=== PATIENT | female | born 1990 | race Two or more races ===

== ENCOUNTER 2023-07-07 23:32 | Inpatient (IN) | payer OTHER ==
[~2023-07-07] VITALS: Ht 167.6 cm; Wt 164.7 kg
[2023-07-08] MEDS ORDERED: LIALDA1.2 GM (00:47)
[2023-07-08 01:57] LABS: PH,URINE 5.5 (5.0-8.0); URINE APPEARANCE Cloudy; URINE BILIRRUBIN Negative (NEGATIVE); URINE BLOOD Negative; URINE COLOR Dark Yellow; URINE GLUCOSE Negative (NEGATIVE); URINE LEUKOCYTE Trace; URINE NITRATE Negative; URINE PROTEIN 30 (NEGATIVE)
[2023-07-08 02:01] LABS: URINE BACTERIA 3702.8 uL (0.0-1933); URINE RBC 20.2 uL (0.0-20.8); URINE WBC 43.4 uL (0.0-23.2)
[2023-07-08 02:07] LABS: HEMATOCRIT 43.9 % (36.0-45.00); HEMOGLOBIN 14.7 g/dL (12.0-15.00); MEAN CELL VOLUME 83.8 fL (80.00-100.00); MEAN CORPUSCULAR HGB CONC 33.4 g/dl (32.0-36.0); PLATELET COUNT 468 K/uL (150-450); RED BLOOD COUNT 5.25 M/uL (4.00-6.00); RED CELL DISTRIBUTION WIDTH 13.7 % (11.5-14.5)
[2023-07-08 02:12] LABS: ALBUMIN 3.8 gm/dL (3.4-5.0); BILIRUBIN TOTAL 0.39 mg/dL (0.3-1.2); CALCIUM 9.7 mg/dL (8.5-10.1); CREATININE SERUM 0.75 mg/dL (0.55-1.02); GFR 88.99; GLOBULINA 5.2 G/DL (2.4-3.5); POTASSIUM 4.3 mEq/L (3.5-5.1)
[2023-07-08 08:45] LABS: HEMATOCRIT 40.4 % (36.0-45.00); HEMOGLOBIN 13.6 g/dL (12.0-15.00); MEAN CELL VOLUME 83.8 fL (80.00-100.00); MEAN CORPUSCULAR HEMOGLOBIN 28.2 pg (27.00-32.0); MEAN CORPUSCULAR HGB CONC 33.6 g/dl (32.0-36.0); PLATELET COUNT 430 K/uL (150-450); RED BLOOD COUNT 4.82 M/uL (4.00-6.00); RED CELL DISTRIBUTION WIDTH 13.8 % (11.5-14.5)
[2023-07-08 19:20] LABS: INR 1.09; PARTIAL THROMBOPLASTIN TIME 31.3 SECONDS (22.0-34.0); PROTHROMBIN TIME 11.4 SECONDS (9.0-11.5)
[2023-07-09 15:08] LABS: PH,URINE 6.5 (5.0-8.0); URINE APPEARANCE Cloudy; URINE BILIRRUBIN Negative (NEGATIVE); URINE BLOOD Negative; URINE COLOR Dark Yellow; URINE GLUCOSE Negative (NEGATIVE); URINE LEUKOCYTE Small; URINE NITRATE Negative; URINE PROTEIN 30 (NEGATIVE)
[2023-07-09 15:12] LABS: URINE BACTERIA 5315.7 uL (0.0-1933); URINE EPITHELIAL CELLS 88.7 uL (0.0-38.8); URINE RBC 75.1 uL (0.0-20.8); URINE WBC 99.4 uL (0.0-23.2)
[2023-07-10 06:03] LABS: HEMATOCRIT 36.8 % (36.0-45.00); HEMOGLOBIN 12.3 g/dL (12.0-15.00); MEAN CELL VOLUME 85.1 fL (80.00-100.00); MEAN CORPUSCULAR HEMOGLOBIN 28.4 pg (27.00-32.0); MEAN CORPUSCULAR HGB CONC 33.3 g/dl (32.0-36.0); PLATELET COUNT 364 K/uL (150-450); RED BLOOD COUNT 4.32 M/uL (4.00-6.00); RED CELL DISTRIBUTION WIDTH 14.2 % (11.5-14.5)
[2023-07-10 06:55] LABS: BILIRUBIN TOTAL 0.25 mg/dL (0.3-1.2); CALCIUM 8.7 mg/dL (8.5-10.1); CREATININE SERUM 0.73 mg/dL (0.55-1.02); GFR 91.81; GLOBULINA 3.7 G/DL (2.4-3.5); MAGNESIUM 2.3 mg/dL (1.8-2.4); PHOSPHOROUS 2.5 mg/dL (2.5-4.9); POTASSIUM 3.83 mEq/L (3.5-5.1); TOTAL PROTEIN 6.7 gm/dL (6.4-8.2)
[2023-07-10 07:17] LABS: C-REACTIVE PROTEIN 3.68 MG/DL (0.00-0.29)
[2023-07-10 12:15] LABS: PLATELET ESTIMATE NORMAL (NORMAL)
== END 2023-07-10 17:26 | disposition home or self-care (01) | DRG 389 ==
LOC: ER 23:33 → SURH 07-08 18:26
PROVIDERS: General Practice; Internal Medicine Infectious Disease; ADMIT Specialist; ATTEND Specialist
PROC: BW21YZZ Computerized Tomography (CT Scan) of Abdomen and Pelvis using Other Contrast (ICD-10-PCS; principal; 2023-07-08)
DX: K56.600 Partial intestinal obstruction, unspecified as to cause (principal); K50.912 Crohn's disease, unspecified, with intestinal obstruction